=== PATIENT | female | born 1965 | race Caucasian/White ===

== ENCOUNTER → 2018-02-19 17:44 | Outpatient (CLI) | payer BC, SELFPAY ==
--- NOTE | 2018-02-19 17:48 | RAD_ITS ---
STUDY: X-RAY - RIGHT KNEE REASON FOR EXAM: Female, 52 years old. Right knee pain. TECHNIQUE: 3 views right knee. COMPARISON: None available. FINDINGS: Normal visualized distal femur. Normal visualized proximal fibula. Tiny bony prominence may represent early osteophytosis projecting superior medially from the proximal tibial medial articular margin. Visualized bony joint spaces appear intact with moderate medial/interfemoral greater than lateral compartmental narrowing noted. Moderate anterior superior patellar spur noted. No suprapatellar joint effusion identified. No finding of acute fracture, dislocation, radiopaque foreign body, soft tissue swelling/calcification or subcutaneous emphysema noted. RAD/Knee 3 Views IMPRESSION: Nonacute x-ray examination of the knee. Moderate tricompartmental degenerative right knee as described. Moderate anterior superior patellar spur noted. Electronically Signed: Zeke Morales, at 19:37 EDT Tel , Service support ,
== END ==
PROVIDERS: Family Provider Family Medicine; PCP Family Medicine; Visit Provider Family Medicine
DX: M19.90 Unspecified osteoarthritis, unspecified site (principal)
CPT/HCPCS: 73562

== ENCOUNTER → 2019-04-01 | Outpatient (CLI) | payer OTHER, SELFPAY ==
[2019-04-01 11:03] VITALS: BMI 26.1
--- NOTE | 2019-04-01 15:57 | RAD_ITS ---
STUDY: X-RAY - RIGHT KNEE REASON FOR EXAM: Female, 54 years old. Right knee pain TECHNIQUE: 5 view(s) of the knee. COMPARISON: 02/19/2018 FINDINGS: Normal visualized distal femur. Normal visualized proximal tibia and fibula. Normal proximal tibiofibular articulation. Normal medial femorotibial compartment. There is mild degenerative arthrosis of the lateral femorotibial compartment. Normal patellofemoral articulation. There is a soft tissue prominence in the suprapatellar region suggesting a small volume joint effusion. There are serpiginous structures of the lateral more than medial knee soft tissues. RAD/Knee 4 or More Views IMPRESSION: 1. Trace joint effusion, new. 2. Mild lateral compartment osteoarthrosis, new. 3. Probable varicose veins. Electronically Signed: Hunter Colón MD at 13:36 EDT , Service support ,
== END | disposition home or self-care (01) ==
LOC: HPRAD 15:57
PROVIDERS: Family Provider Family Medicine; PCP Family Medicine; Referring Provider Orthopaedic Surgery; Visit Provider Orthopaedic Surgery
DX: M25.561 Pain in right knee (principal)
CPT/HCPCS: 73564

== ENCOUNTER → 2019-10-07 12:30 | Outpatient (CLI) | payer OTHER, SELFPAY ==
[2019-10-06 13:58] VITALS: BMI 26.1
[2019-10-09 20:47] LABS: HPV Reflexed? NOT INDICATED
== END ==
PROVIDERS: Family Provider Family Medicine; PCP Family Medicine; Referring Provider Family Medicine; Visit Provider Family Medicine
DX: Z01.419 Encounter for gynecological examination (general) (routine) without abnormal findings (principal)
CPT/HCPCS: 88175; G0145

== ENCOUNTER 2019-10-20 09:18 | Day surgery (SDC) | payer OTHER, SELFPAY ==
[2019-09-23 15:34] VITALS: BMI 26.1
[2019-10-06 13:58] VITALS: BMI 26.1
[2019-10-20 09:51] VITALS: BP 111/59; PULSE 52; RESP 16; TEMP 37.6; O2SAT 99; BMI 28.8
[2019-10-20] MEDS: Lactated Ringers 1,000 ML 100 ML IV ×2 (10:12→12:48)
--- NOTE | 2019-10-20 11:11 | PCM.HP.BLA ---
History and Physical Date of Admission: 10/20/19 Intake Vital Signs 09/23/19 Body Mass Index (BMI) 26.1 Intake Visit Reasons: RIGHT KNEE Is patient in pain?: Yes Pain scale (1-10): 6 Allergies Penicillins Allergy (Intermediate, Verified 07/06/19 15:21) Hives Medications omeprazole 40 mg capsule,delayed release See Rx Instructions .ROUTE .COMPLEX #90 capsule 05/27/19 [Rx Confirmed 09/23/19] benazepril 10 mg tablet 10 mg PO QDAY #90 tab 08/10/19 [Rx Confirmed 09/23/19] hydrocortisone 2.5 % topical cream 1 applic TOPICAL BID 09/09/19 [History Confirmed 09/23/19] [facility] Medical History (Updated 02/19/18 @ 17:04 by Elaine Enciso) Vascular disease (Chronic) GERD (gastroesophageal reflux disease) (Chronic) Hypertension (Chronic) Chronic headaches (Chronic) Osteoarthritis (Chronic) Surgical History (Updated 02/19/18 @ 17:04 by Elaine Enciso) History of (Acute) history of vein surgery (Acute) history planter fascitis (Acute) history uterine ablation (Acute) Family History (Updated 02/19/18 @ 17:10 by Elaine Enciso) Grandfather Alcoholism Mother Anxiety Arthritis Bleeding disorder Diverticulosis Hypertension Osteoporosis Severe Allergies Ulcer disease Grandmother Breast cancer CVA (cerebral vascular accident) Grandmother Colon cancer Father Colon cancer Cancer Myocardial infarction Heart disease Hypertension Hyperlipidemia Brother Myocardial infarction Social History (Updated 09/23/19 @ 15:48 by Abhay Lugo DO) Smoking Status: Never smoker alcohol intake: current alcohol intake frequency: a few times a week what type of physical activity do you participate in: walking frequency: 3-4 times per week HPI RIGHT KNEE: Details: Parts of this documentation were recorded by a scribe, this documentation accurately reflects the service provided and the decisions made by me, Abhay Lugo DO 09/23/19 0809. LAKSHMI TORIBIO is a 54 year old F here today for right knee pain that has increased anterior and lateral knee pain. She has failed all conservative treatments, she continues to use nsaids and tylenol prn for pain but gets limited relief. She has an antalgic gait today and states that is her normal. Denies numbness, tingling or other associated symptoms. Denies any swelling today but it can swell on occasion Ortho Exam Right Knee Skin/Wound: No erythema, No ecchymosis, No swelling Homans Sign: No Knee ROM: Yes ROM-Extension -20 to 0, Yes ROM-Flexion 0-140 Examination: Yes Med jt line tenderness Stability: NML: Anterior Drawer, NML: Posterior Drawer, NML: Valgus 30, NML: Varus 30 Patella Grind: No KNEE: prominent varicose veins Supplemental Info 04/17/19 [facility] MRI right knee: Tricompartmental DJD joint effusion horizontal cleavage tear lateral meniscus degenerative fraying medial meniscus Assessment & Plan Problems 1. Acute medial meniscus tear of right knee, subsequent encounter S83.241D 2. Other tear of lateral meniscus of right knee as current injury, subsequent encounter S83.281D Plan Reviewed the post op restrictions, and d/t the h/o phlebitis instructed her to use a 81mg aspirin BID for two weeks post op. Explained that the goal of surgery is relief of sharp pain from the meniscus but an aching from OA can remain. Reviewed the pre-operative plans with the patient. Risks and benefits of the procedure were fully explained, including but not limited to infection, neurovascular injury, continued pain, arthritis, stiffness, need for further surgery, re-injury, DVT, PE, general risks of anesthesia, and loss of limb or life. The patient understands all the risks and does wish to proceed with written consent. Follow up in 2 wks post post op or sooner if pain, swelling, numbness or associated symptoms, or concerns develop. All questions answered. Patient in agreement of plan. Coding Level of Care Code Off vis,est,level 3 Diagnoses Acute medial meniscus tear of right knee, subsequent encounter S83.241D ??Encounter type: subsequent encounter Other tear of lateral meniscus of right knee as current injury, subsequent encounter S83.281D ??Encounter type: subsequent encounter ??Meniscus tear of knee type: other type I have re-examined the patient. There are no clinical changes since date of exam
[2019-10-20 11:12] LABS: ALB/GLOB Ratio 1.2 RATIO (0.9-2.4); AST(SGOT) 23 U/L (15-37); Alanine Aminotransfer ALT/SGPT 19 U/L (13-56); Albumin, Serum 3.8 g/dL (3.2-5.0); Alkaline Phosphatase 69 U/L (45-117); Anion Gap 5 (5-15); BUN 16 mg/dL (7-18); BUN/Creat Ratio 24.6 RATIO (10-20); Calcium,Total 9.1 mg/dL (8.5-10.1); Chloride 111 mmol/L (98-107); Creatinine, Serum 0.65 mg/dL (0.55-1.02); EST Glomerular Filtration Rate 100 mL/min (>60); Est Glom Filt Rate - Afr Amer 121 mL/min (>60); Estimated Creatinine Clearance 79.94 ml/min; Globulin 3.3 g/dL (2.2-4.2); Glucose 91 mg/dL (74-106); Potassium 3.8 mmol/L (3.5-5.1); Protein, Total 7.1 g/dL (6.4-8.2); Sodium Level 143 mmol/L (136-145)
[2019-10-20] MEDS: Epinephrine (1 mg/ml) 1 MG/ML VIAL (11:48)
[2019-10-20] MEDS: Bupiv/Epi 0.25% 30 ML Vial (11:49)
[2019-10-20] MEDS: Bupivacaine 0.5% PF 10 ML VIAL (12:05)
[2019-10-20] MEDS: MethylPREDNISolone Acetate 80 MG/ML Vial (12:06)
--- NOTE | 2019-10-20 12:15 | DCINST_ITS ---
Discharge Diet: No Restrictions Call your doctor if you observe: Fever of 101 or Higher, Shortness of breath, Chest pain Additional Instructions: Ice and elevate next 72 hours .keep dressing on clean and dry for 48 hours then may remove begin showering daily but do not submerge in tub or pool. After shower may apply Band-Aids . Encourage knee range of motion weightbearing as tolerated, use crutches until confident in knee then may discontinue. No strenuous activity. When not ambulating keep iced and elevated next 72 hours. Allergies/Adverse Reactions: Allergies Penicillins Allergy (Intermediate, Verified 10/13/19 14:09) Hives meperidine [From Demerol] Adverse Reaction (Verified 10/13/19 14:09) Nausea/Vom/Diarrhea Medications to take at Discharge benazepril 10 mg tablet 10 mg PO QDAY #90 tab 08/10/19 hydrocortisone 2.5 % topical cream 1 applic TOPICAL BID 09/09/19 Acetaminophen [Arthritis Pain Relief] 1,300 mg PO DAILY 10/13/19 Calcium Carbonate [Calcium] 500 mg PO DAILY 10/13/19 Multivit-Min/Folic Acid/Biotin [Hair, Skin & Nails Caplet] 1 ea PO DAILY 10/13/19 Omeprazole 40 mg PO DAILY 10/13/19 Turmeric Root Extract [Turmeric] 500 mg PO DAILY 10/13/19 Hydrocodone Bitart/Apap 5-325 [[place] 5MG-325MG] 1 - 2 tablet PO Q4H PRN PRN 5 Days #50 tablet 10/20/19 The following prescriptions were given: Hydrocodone Bitart/Apap 5-325 [[place] 5MG-325MG] 1 - 2 tablet PO Q4H PRN PRN 5 Days #50 tablet PRN Reason: Pain Transmission Status: Received by [facility] #[id number] Primary Care Physician: Lawson Hutson DO [Primary Care Provider] - Test Results: Test results from this visit will be discussed in further detail at your follow- up appointment, if applicable. Please Follow Up With: Abhay Lugo DO - 2 weeks
--- NOTE | 2019-10-20 12:16 | OP.PCM_ITS ---
Report of Operation Date of Procedure: 10/20/19 Description of Surgical Findings:: Preop diagnosis: Right knee medial and lateral meniscus tear Postoperative diagnosis: Right knee horizontal tear posterior horn medial meniscus horizontal tear posterior horn body and anterior horn lateral meniscus grade 3 cartilage wear throughout the knee Procedure: Arthroscopic right knee partial medial meniscectomy partial lateral meniscectomy Anesthesia: General Estimated blood loss: 5 mL Tourniquet time: 25 minutes minutes 300 mmHg Complications: none Indication for procedure: This is a 54-year-old female patient with ongoing mechanical symptoms who did have MRI evidence of medial and lateral meniscus tear the patient did wish to proceed with an elective arthroscopic surgery to attempt to alleviate the symptoms. Risk benefits and alternatives of the procedure were reviewed including risk of bleeding infection nerve artery tissue damage need for further surgery continued pain and expected postoperative course. Procedure: The patient was met in the preoperative holding area. The operative extremity was identified by both patient and physician and family and marked. Patient was brought back to the operating room on a wheeled cart and transferred to the operating table in the supine position. Anesthesia was started. A well- padded tourniquet was placed on the operative extremity. A lower extremity leg andrews was secured to the operative extremity. The contralateral extremity was well-padded and the end of the bed was flexed to 90 degrees. The patient was prepped and draped in the usual sterile fashion. A timeout was called to ensure the proper patient, procedure, and extremity were being contemplated. 0.5% Marcaine with epinephrine was injected into the planned incisional areas under the skin only. An Esmarch was used to exsanguinate the extremity and the tourniquet was inflated. An 11 blade scalpel was used to make a stab incision in the anterior lateral portal. The arthroscope was inserted into the intercondylar notch and inflow and outflow tubes were attached. Arthroscopic visualization began. The medial compartment was entered. An 18-gauge spinal needle was used to establish the placement for anterior medial portal. An 11 blade scalpel was used to make a stab incision. Blunt probe was inserted followed by a meniscal probe. There is immediately noted to be tearing of the posterior horn with the use of arthroscopic biting instruments and shaver and ArthroCare wand partial medial meniscectomy was performed there was grade 3 cartilage wear throughout however no loose cartilage flaps the ACL was found to be intact. The lateral compartment was entered horizontal tear extending from the anterior to the posterior horn lateral meniscus partial lateral meniscectomy was performed The arthroscope was switched to the medial portal to complete the procedure. The medial and lateral gutters were inspected and were free of loose bodies. The patellofemoral joint was inspected grade 3 cartilage wear without loose flaps for debridement. There was good patellar tracking. The knee was thoroughly irrigated and drained. An intra-articular injection with 5 cc 0.5% Marcaine plain 4 mg of morphine and 40 mg of Depo-Medrol was injected intra-articularly. The arthroscope was removed the portals were closed with 3-0 nylon arthroscopic stitches. Followed by Xeroform 4 x 4's ABDs web roll and an Rocky wrap. The tourniquet was let down and the drapes were removed. All counts were correct. The patient was brought back to the PACU in stable condition.
[2019-10-20 12:24] VITALS: BP 105/58; BP 111/59; PULSE 79; RESP 16; TEMP 37.1; O2SAT 96
[2019-10-20 12:30] VITALS: BP 111/59; BP 98/58; PULSE 75; RESP 16; O2SAT 95
[2019-10-20 12:45] VITALS: BP 111/59; BP 94/50; PULSE 67; RESP 16; O2SAT 97
[2019-10-20 13:00] VITALS: BP 105/51; BP 111/59; PULSE 69; RESP 16; TEMP 36.3; O2SAT 96
[2019-10-20] MEDS: HYDROcodone Bitartrate/Apap 5/325 Tablet PO (13:21)
[2019-10-20 13:30] VITALS: BP 111/59
== END 2019-10-20 13:54 | disposition home or self-care (01) ==
LOC: SDC 09:21 → AC 09:28
PROVIDERS: Family Provider Family Medicine; PCP Family Medicine; Referring Provider Orthopaedic Surgery; Visit Provider Orthopaedic Surgery
PROC: (CPT 29870; principal; 2019-10-20 11:10)
DX: S83.281A Other tear of lateral meniscus, current injury, right knee, initial encounter (principal); S83.241A Other tear of medial meniscus, current injury, right knee, initial encounter; X58.XXXA Exposure to other specified factors, initial encounter; Y93.9 Activity, unspecified; Y92.9 Unspecified place or not applicable; I10 Essential (primary) hypertension; K21.9 Gastro-esophageal reflux disease without esophagitis; M19.90 Unspecified osteoarthritis, unspecified site; M79.7 Fibromyalgia; Z78.0 Asymptomatic menopausal state; Z86.718 Personal history of other venous thrombosis and embolism; Z79.899 Other long term (current) drug therapy
CPT/HCPCS: 29880; 80053; J7120; A4216; J2405

== ENCOUNTER → 2021-08-15 | Outpatient (CLI) | payer OTHER, SELFPAY | END | disposition home or self-care (01) | LOC: LABSPEC 14:00 | PROVIDERS: PCP Family Medicine; Referring Provider Nurse Practitioner Family; Visit Provider Nurse Practitioner Family | DX: Z20.828 Contact with and (suspected) exposure to other viral communicable diseases (principal) | CPT/HCPCS: 87635; U0005; U0003 ==

== ENCOUNTER 2022-01-02 16:45 | Outpatient (CLI) | payer OTHER, SELFPAY ==
--- NOTE | 2022-01-02 16:57 | RAD_ITS ---
STUDY: X-RAY - LEFT SHOULDER REASON FOR EXAM: Female, 56 years old. shoulder pain TECHNIQUE: 4 view(s) of the shoulder. COMPARISON: None. FINDINGS: There is mild degenerative arthrosis of the glenohumeral articulation. Normal acromioclavicular joint. Normal acromion. Normal humeral head and visualized proximal humerus. The soft tissue structures are unremarkable. Normal visualized pulmonary apex. RAD/Shoulder min 2 Views IMPRESSION: Mild shoulder joint space narrowing Electronically Signed: Fox Zavala MD at 23:50 EST ,
== END 2022-01-02 23:59 | disposition home or self-care (01) ==
LOC: RAD 16:50
PROVIDERS: PCP Family Medicine; Referring Provider Family Medicine; Visit Provider Family Medicine
DX: M25.512 Pain in left shoulder (principal)
CPT/HCPCS: 73030

== ENCOUNTER → 2023-03-21 | Outpatient (CLI) | payer OTHER, SELFPAY ==
--- NOTE | 2023-03-21 09:40 | RAD_ITS ---
STUDY: X-RAY - LUMBAR SPINE REASON FOR EXAM: Female, 58 years old. Sciatic pain TECHNIQUE: 2 view(s) of the lumbar spine were obtained. COMPARISON: None FINDINGS: Normal lumbar lordosis. There is no substantial scoliosis. There is a normal alignment of the vertebrae. There is multilevel endplate spondylosis of the lumbar vertebrae. There is multi-level degenerative disc disease with multi-level disc space narrowing. Facet joint osteoarthritis. Large amount of fecal material is seen in the left hemicolon. RAD/Lumbar Spine 2 or 3 Views IMPRESSION: Degenerative changes of the spine, as detailed above. Electronically Signed: Raul Fernandez MD at 10:40 EDT ,
== END | disposition home or self-care (01) ==
LOC: RAD 09:34
PROVIDERS: PCP Family Medicine; Referring Provider Family Medicine; Visit Provider Family Medicine
DX: M54.32 Sciatica, left side (principal)
CPT/HCPCS: 72100

== ENCOUNTER → 2025-03-29 | Outpatient (CLI) | payer OTHER, SELFPAY ==
--- NOTE | 2025-03-29 16:27 | RAD_ITS ---
PROCEDURE: CERV SPINE OBL/FLEX/EXT COMP 03/29/2025 REASON FOR EXAM: CERVICAL SPINE PAIN TECHNIQUE: 8 views of the cervical spine. 9 total images with 2 open-mouth odontoid COMPARISON: None available FINDINGS: The cervical spine is visualized on the lateral view from the skull base to T1. No fracture or malalignment. No prevertebral soft tissue swelling. No evidence of instability. C5-6 severe disc space narrowing and degenerative endplate changes with anterior corner osteophyte formation. Bilateral foraminal narrowing suggested. Asymmetric hypertrophic facet change mildly greater on the right. C6-7 mild to moderate disc space narrowing and anterior corner osteophyte formation Visualized apices appear clear. RAD/Cerv Spine Obl/Flex/Ext Comp IMPRESSION: Multilevel spondylosis/discogenic change as above. Reading Location: [id number]
--- NOTE | 2025-03-29 16:27 | RAD_ITS ---
PROCEDURE: SHOULDER MIN 2 VIEWS 03/29/2025 REASON FOR EXAM: PAIN TECHNIQUE: 4 views of the right shoulder COMPARISON: Left shoulder x-ray performed on 01/02/2022. FINDINGS: The right shoulder is in anatomic alignment. There is no evidence of fracture or dislocation. Degenerative changes noted of the acromioclavicular joint. Visualized portion of the right lung field is grossly clear. No displaced right-sided rib fracture identified. An irregular growth is seen within the portions of the mid to humerus. This irregularity appears to be cortically based but is incompletely characterized. Recommend dedicated right humerus series to rule out etiology such as osteochondroma or aggressive processes. RAD/Shoulder min 2 Views IMPRESSION: An irregular growth is seen within the portions of the mid to humerus. This ir regularity appears to be cortically based but is incompletely characterized. Recommend dedicated right humerus series to rule ou t etiology such as osteochondroma or aggressive processes. No acute fracture or dislocation seen within the right shoulder. Reading Location: [id number]
== END | disposition home or self-care (01) ==
LOC: MTRAD 16:26
PROVIDERS: PCP Family Medicine; Referring Provider Clinical Nurse Specialist Adult Health; Visit Provider Clinical Nurse Specialist Adult Health
DX: M54.2 Cervicalgia (principal)
CPT/HCPCS: 72052; 73030

== ENCOUNTER → 2025-04-12 | Outpatient (CLI) | payer OTHER, SELFPAY ==
--- NOTE | 2025-04-12 16:28 | RAD_ITS ---
EXAM: XR Right Humerus, 2 or More Views CLINICAL INDICATION: RIGHT SHOULDER XRAY-WAS RECOMMENDED TO HAVE HUMERUS TO R/O TECHNIQUE: Frontal and lateral views of the right humerus. COMPARISON: No relevant prior studies available. FINDINGS: BONES/JOINTS: Moderate degenerative changes of the visualized shoulder joints. No dislocation. No acute fracture. SOFT TISSUES: Unremarkable. RAD/Humerus min 2 Views IMPRESSION: No acute fracture. Reading Location: [facility] [place]
== END | disposition home or self-care (01) ==
LOC: MTRAD 16:26
PROVIDERS: PCP Family Medicine; Referring Provider Clinical Nurse Specialist Adult Health; Visit Provider Clinical Nurse Specialist Adult Health
DX: Z03.89 Encounter for observation for other suspected diseases and conditions ruled out (principal)
CPT/HCPCS: 73060

== ENCOUNTER → 2025-08-02 | Outpatient (CLI) | payer OTHER, SELFPAY ==
[2025-08-02 18:34] LABS: Hematocrit 37.1 % (37-47); Hemoglobin 12.3 g/dL (12.0-15.0); Immature Granulocytes Count 0.010 X10^3/uL (0.0-0.0); Mean Corp Hgb Conc 33.2 g/dL (32-36); Mean Corpuscular Volume 90.7 fL (81-99); Mean Platelet Vol. 9.6 fl (6.2-12.0); NRBC Flagged by Analyzer 0 % (0-5); Platelet Count 236 K/mm3 (150-450); RBC Distribution Width CV 13.2 % (11.6-14.6); RBC Distribution Width SD 43.7 fl (35.1-43.9); Red Blood Count 4.09 M/mm3 (4.2-5.4); White Blood Count 7.6 K/mm3 (4.4-11.0)
[2025-08-02 19:00] LABS: AST(SGOT) 31 U/L (<=31); Alanine Aminotransfer ALT/SGPT 23 U/L (<=34); Albumin, Serum 4.3 g/dL (3.4-4.8); Alkaline Phosphatase 97 U/L (35-104); Anion Gap 11 (5-15); BUN 23 mg/dL (4-19); BUN/Creat Ratio 26.0 RATIO (10-20); Calcium,Total 9.8 mg/dL (7.6-11.0); Carbon Dioxide 24.5 mmol/L (21.0-32.0); Chloride 103 mmol/L (98-108); Cholesterol 221 mg/dL (<=200); Globulin 3.1 g/dL (2.2-4.2); Glucose 88 mg/dL (70-99); Low Density Lipoprotein Calc. 81 mg/dL; Potassium 4.1 mmol/L (3.3-5.1); Triglycerides 234 mg/dL; Very Low Density Lipoprotein 47 mg/dL (5-40); cholesterol:hdl ratio screen 2.37
== END | disposition home or self-care (01) ==
LOC: MTLAB 16:42
PROVIDERS: PCP Family Medicine; Referring Provider Clinical Nurse Specialist Adult Health; Visit Provider Clinical Nurse Specialist Adult Health
DX: N95.1 Menopausal and female climacteric states (principal); Z79.1 Long term (current) use of non-steroidal anti-inflammatories (NSAID); I10 Essential (primary) hypertension
CPT/HCPCS: 36415; 80053; 80061; 85025